=== PATIENT | male | born 1990 | race Caucasian/White ===

== ENCOUNTER 2017-08-09 08:25 | Emergency (ER) | payer BC ==
[2017-08-09] MEDS ORDERED: Lidocaine 2% Viscous Solution 15 ML Cup PO ONE (08:45)
[2017-08-09] MEDS ORDERED: Benzocaine 20% Topical Spray UD MUCMEM ONE (08:45)
--- NOTE | 2017-08-09 08:45 | EDM.PDOC ---
ED HPI GENERAL MEDICAL PROBLEM - General Chief Complaint: ENT Problem Stated Complaint: TOOTHACHE Time Seen by Provider: 08/09/17 08:29 Source of Information: Reports: Patient History Limitations: Reports: No Limitations - History of Present Illness INITIAL COMMENTS - FREE TEXT/NARRATIVE: History of present illness: []Patient had a filling fall out of his tooth 2 years ago and has not had any problems until he started working here and [employer] He complains of sharp pain in an upper left tooth without swelling, drainage, fevers or chills. Review of systems: As per history of present illness and below otherwise all systems reviewed and negative. Past medical history: As per history of present illness and as reviewed below otherwise noncontributory. Surgical history: As per history of present illness and as reviewed below otherwise noncontributory. Social history: No reported history of drug or alcohol abuse. Family history: As per history of present illness and as reviewed below otherwise noncontributory. Physical exam: General: Well developed, well nourished in NAD HEENT: Atraumatic, normocephalic, pupils reactive, negative for conjunctival pallor or scleral icterus, mucous membranes moist, throat clear, neck supple, nontender, trachea midline. No gingival erythema or drainage, gingiva tender to palpation Lungs: Clear to auscultation, breath sounds equal bilaterally, chest nontender. Heart: S1S2, regular, negative for clicks, rubs, or JVD. Abdomen: Soft, nondistended, nontender. Negative for masses or hepatosplenomegaly. Negative for costovertebral tenderness. Pelvis: Stable nontender. Genitourinary: Deferred. Rectal: Deferred. Extremities: Atraumatic, negative for cords or calf pain. Neurovascular unremarkable. Neuro: Awake, alert, oriented. Cranial nerves II through XII unremarkable. Cerebellum unremarkable. Motor and sensory unremarkable throughout. Exam nonfocal. Diagnostics: [] Therapeutics: [] Impression: []Dental pain, early abscess Plan: []Dental Myriam villalpando, follow-up with the dentist this week Definitive disposition and diagnosis as appropriate pending reevaluation and review of above. tooth Pain Score (Numeric/FACES): 8 - Related Data Allergies Allergy/AdvReac Type Severity Reaction Status Date / Time No Known Allergies Allergy Verified 08/09/17 08:26 Home Meds: Home Meds Penicillin V Potassium 500 mg PO Q6HR #40 tab 08/09/17 [Rx] Past Medical History - Past Health History Medical/Surgical History: Denies Medical/Surgical History Social & Family History - Family History Family Medical History: Noncontributory - Tobacco Use Smoking Status *Q: Never Smoker - Recreational Drug Use Recreational Drug Use: No ED ROS ENT - Review of Systems Review Of Systems: See Below (See history of present illness) ED EXAM, ENT - Physical Exam Exam: See Below (See history of present illness) Course - Vital Signs Last Recorded V/S: Last Vital Signs Temp 97.4 F 08/09/17 08:25 Pulse 66 08/09/17 08:25 Resp 18 08/09/17 08:25 BP 123/80 08/09/17 08:25 Pulse Ox 99 08/09/17 08:25 - Orders/Labs/Meds Meds: Medications Discontinued Medications Generic Name Dose Route Start Last Admin Trade Name Freq PRN Reason Stop Dose Admin Benzocaine 2 each 08/09/17 08:45 Hurricaine One 20% MUCMEM 08/09/17 08:46 ONETIME ONE Lidocaine HCl 15 ml 08/09/17 08:45 Xylocaine 2% Viscous PO 08/09/17 08:46 ONETIME ONE - Re-Assessments/Exams Free Text/Narrative Re-Assessment/Exam: 08/09/17 08:46 Will treat for early abscess with pen VK, dental balls given for pain. Patient is to follow-up with dentist next week Departure - Departure Time of Disposition: 08:47 Disposition: Home, Self-Care 01 Condition: Good Clinical Impression: Dental implant pain Qualifiers: Encounter type: initial encounter Qualified Code(s): T85.848A - Pain due to other internal prosthetic devices, implants and grafts, initial encounter - Discharge Information Prescriptions: Penicillin V Potassium 500 mg PO Q6HR #40 tab Referrals: PCP,None [Primary Care Provider] - Forms: ED Department Discharge Additional Instructions: The following information is given to patients seen in the emergency department who are being discharged to home. This information is to outline your options for follow-up care. We provide all patients seen in our emergency department with a follow-up referral. The need for follow-up, as well as the timing and circumstances, are variable depending upon the specifics of your emergency department visit. If you don't have a primary care physician on staff, we will provide you with a referral. We always advise you to contact your personal physician following an emergency department visit to inform them of the circumstance of the visit and for follow-up with them and/or the need for any referrals to a consulting specialist. The emergency department will also refer you to a specialist when appropriate. This referral assures that you have the opportunity for follow-up care with a specialist. All of these measure are taken in an effort to provide you with optimal care, which includes your follow-up. Under all circumstances we always encourage you to contact your private physician who remains a resource for coordinating your care. When calling for follow-up care, please make the office aware that this follow-up is from your recent emergency room visit. If for any reason you are refused follow-up, please contact the [facility] Emergency Department at and asked to speak to the emergency department charge nurse.
== END 2017-08-09 09:00 | disposition home or self-care (01) ==
LOC: MW.ED 08:25
DX: M27.69 Other endosseous dental implant failure (principal); K04.7 Periapical abscess without sinus
CPT/HCPCS: 99282; A9270